=== PATIENT | male | born 1950 | race Caucasian/White ===

== ENCOUNTER 2023-12-07 13:10 | Outpatient (RCR) | payer MEDICARE, OTHER, SELFPAY | END 2023-12-07 23:59 | disposition home or self-care (01) | LOC: RPT 13:10 | PROVIDERS: ATTENDING PHYSICIAN Internal Medicine Medical Oncology; FAMILY PHYSICIAN Internal Medicine | DX: R53.81 Other malaise (principal) | CPT/HCPCS: 97110; 97162; 97530 ==

== ENCOUNTER 2024-01-04 12:56 | Outpatient (RCR) | payer MEDICARE, OTHER, SELFPAY | END 2024-01-04 23:59 | disposition home or self-care (01) | LOC: RPT 12:56 | PROVIDERS: ATTENDING PHYSICIAN Internal Medicine Medical Oncology; FAMILY PHYSICIAN Internal Medicine | DX: R53.81 Other malaise (principal); Z73.6 Limitation of activities due to disability | CPT/HCPCS: 97110; 97530 ==

== ENCOUNTER 2024-02-06 13:09 | Outpatient (RCR) | payer MEDICARE, OTHER, SELFPAY | END 2024-02-06 23:59 | disposition home or self-care (01) | LOC: RPT 13:09 | PROVIDERS: ATTENDING PHYSICIAN Internal Medicine Medical Oncology; FAMILY PHYSICIAN Internal Medicine | DX: R53.81 Other malaise (principal); Z73.6 Limitation of activities due to disability; R26.2 Difficulty in walking, not elsewhere classified; M62.81 Muscle weakness (generalized); R53.83 Other fatigue | CPT/HCPCS: 97110; 97530 ==

== ENCOUNTER 2024-03-07 12:59 | Outpatient (RCR) | payer MEDICARE, OTHER, SELFPAY | END 2024-03-07 23:59 | disposition home or self-care (01) | LOC: RPT 12:59 | PROVIDERS: ATTENDING PHYSICIAN Internal Medicine Medical Oncology; FAMILY PHYSICIAN Internal Medicine | DX: R53.81 Other malaise (principal); Z73.6 Limitation of activities due to disability; R26.2 Difficulty in walking, not elsewhere classified; M62.81 Muscle weakness (generalized); R53.83 Other fatigue; R26.89 Other abnormalities of gait and mobility; Z85.528 Personal history of other malignant neoplasm of kidney | CPT/HCPCS: 97110; 97530 ==

== ENCOUNTER 2024-04-04 11:14 | Outpatient (RCR) | payer MEDICARE, OTHER, SELFPAY | END 2024-04-04 23:59 | disposition home or self-care (01) | LOC: RPT 11:14 | PROVIDERS: ATTENDING PHYSICIAN Internal Medicine Medical Oncology; FAMILY PHYSICIAN Internal Medicine | DX: R53.81 Other malaise (principal); R53.1 Weakness; Z73.6 Limitation of activities due to disability; R26.2 Difficulty in walking, not elsewhere classified; M62.81 Muscle weakness (generalized) | CPT/HCPCS: 97110; 97530 ==

== ENCOUNTER 2024-05-08 12:50 | Outpatient (RCR) | payer MEDICARE, OTHER, SELFPAY | END 2024-05-08 23:59 | disposition home or self-care (01) | LOC: RPT 12:50 | PROVIDERS: ATTENDING PHYSICIAN Internal Medicine Medical Oncology; FAMILY PHYSICIAN Internal Medicine | DX: R53.81 Other malaise (principal); Z73.6 Limitation of activities due to disability; R26.2 Difficulty in walking, not elsewhere classified; M62.81 Muscle weakness (generalized); R53.1 Weakness | CPT/HCPCS: 97110; 97530 ==

== ENCOUNTER 2024-06-07 12:50 | Outpatient (RCR) | payer MEDICARE, OTHER, SELFPAY | END 2024-06-07 23:59 | disposition home or self-care (01) | LOC: RPT 12:50 | PROVIDERS: ATTENDING PHYSICIAN Internal Medicine Medical Oncology; FAMILY PHYSICIAN Internal Medicine | DX: R53.81 Other malaise (principal); Z73.6 Limitation of activities due to disability; R26.2 Difficulty in walking, not elsewhere classified; M62.81 Muscle weakness (generalized); R53.1 Weakness | CPT/HCPCS: 97110; 97530 ==

== ENCOUNTER 2024-07-05 13:00 | Outpatient (RCR) | payer MEDICARE, OTHER, SELFPAY | END 2024-07-05 23:59 | disposition home or self-care (01) | LOC: RPT 13:00 | PROVIDERS: ATTENDING PHYSICIAN Internal Medicine Medical Oncology; FAMILY PHYSICIAN Internal Medicine | DX: R53.81 Other malaise (principal); Z73.6 Limitation of activities due to disability; R26.2 Difficulty in walking, not elsewhere classified; R53.1 Weakness; M62.81 Muscle weakness (generalized) | CPT/HCPCS: 97110; 97530 ==

== ENCOUNTER → 2024-07-16 13:00 | Outpatient (REF) | payer MEDICARE, OTHER, SELFPAY ==
[2024-07-16 15:38] LABS: Free T3 2.21 pg/ml (2.77-5.27); Free T4 1.06 ng/dl (0.78-2.19)
== END ==
LOC: REG 13:00
PROVIDERS: ATTENDING PHYSICIAN Internal Medicine Medical Oncology
DX: E03.2 Hypothyroidism due to medicaments and other exogenous substances (principal)
CPT/HCPCS: 36415; 84439; 84443; 84481

== ENCOUNTER 2024-07-24 12:13 | Outpatient (RCR) | payer MEDICARE, OTHER, SELFPAY | END 2024-07-31 14:04 | disposition home or self-care (01) | LOC: RPT 12:13 | PROVIDERS: ATTENDING PHYSICIAN Internal Medicine Medical Oncology; FAMILY PHYSICIAN Internal Medicine | DX: R53.81 Other malaise (principal); R26.2 Difficulty in walking, not elsewhere classified; Z73.6 Limitation of activities due to disability; R53.1 Weakness; M62.81 Muscle weakness (generalized) | CPT/HCPCS: 97110; 97530 ==

== ENCOUNTER → 2024-12-26 08:49 | Outpatient (REF) | payer MEDICARE, OTHER, SELFPAY ==
[2024-12-26 10:06] LABS: Hematocrit 40.6 % (39.0-52.0); Hemoglobin 12.8 g/dL (13.0-18.0); Mean Corp Hgb Conc. 31.5 g/dL (33.0-37.0); Mean Corpuscular Volume 84.6 fL (80.0-94.0); Nucleated Red Blood Cells % 0 % (-); Platelet Count 208 10^3/uL (130-400); Red Cell Dist. Width 16.8 % (11.5-14.5)
[2024-12-26 10:53] LABS: Glycohemoglobin (HgbA1c) 5.9 % (4.0-5.6)
[2024-12-26 11:10] LABS: ALT (SGPT) 21 U/L (0-50); AST (SGOT) 17 U/L (17-59); Albumin 4.2 g/dl (3.5-5.0); Alkaline Phosphatase 89 U/L (38-126); Blood Urea Nitrogen 28 mg/dl (9-20); Calcium 9.3 mg/dl (8.4-10.2); Carbon Dioxide 24 mmol/L (22-30); Chloride 105 mmol/L (98-107); Glucose 106 mg/dl (70-99); HDL Cholesterol 45 mg/dl; LDL Cholesterol, Calculated 154 mg/dl; Potassium 4.5 mmol/L (3.5-5.1); Sodium 138 mmol/L (135-145); Total Protein 8.0 g/dl (6.3-8.2); Very Low Density Lipoprotein 36 mg/dl (0-30); eGFR 58.37
[2024-12-26 11:28] LABS: PSA, Total - Diagnostic 0.70 ng/ml (0.0-4.0); TSH 4.47 uIU/ml (0.47-4.68)
[2024-12-26 11:52] LABS: Urine Character Clear (Clear)
[2024-12-26 12:29] LABS: Urine Urothelial Cell 0-2 /LPF (FEW)
[2024-12-26 12:30] LABS: Urine Red Blood Cell 0-2 /HPF (0-2); Urine White Cell 0-2 /HPF (0-5)
[2024-12-26 13:25] LABS: Microalb - Urine Creatinine 99.700 mg/dl
[2024-12-26 13:29] LABS: Microalbumin, Random Urine 7.9 mg/dl (0.6-1.7)
== END ==
LOC: HWLAB 08:49
PROVIDERS: ATTENDING PHYSICIAN Nurse Practitioner Adult Health; FAMILY PHYSICIAN Internal Medicine
DX: E83.42 Hypomagnesemia (principal); C64.9 Malignant neoplasm of unspecified kidney, except renal pelvis; R74.01 Elevation of levels of liver transaminase levels; N28.89 Other specified disorders of kidney and ureter; Z00.00 Encounter for general adult medical examination without abnormal findings; I10 Essential (primary) hypertension; E11.9 Type 2 diabetes mellitus without complications; E78.49 Other hyperlipidemia; L89.892 Pressure ulcer of other site, stage 2; K21.9 Gastro-esophageal reflux disease without esophagitis; N40.0 Benign prostatic hyperplasia without lower urinary tract symptoms
CPT/HCPCS: 80053; 80061; 81003; 81015; 82043; 82248; 82570; 83036; 84153; 84439; 84443; 85025

== ENCOUNTER 2025-04-03 11:50 | Outpatient (RCR) | payer MEDICARE, OTHER, SELFPAY | END 2025-04-03 23:59 | disposition home or self-care (01) | LOC: RPT 11:50 | PROVIDERS: ATTENDING PHYSICIAN Physician Assistant Medical; FAMILY PHYSICIAN Internal Medicine | DX: R26.2 Difficulty in walking, not elsewhere classified (principal); Z96.651 Presence of right artificial knee joint (principal); R53.83 Other fatigue; Z73.6 Limitation of activities due to disability; M62.81 Muscle weakness (generalized); R26.89 Other abnormalities of gait and mobility; M25.561 Pain in right knee; Z85.528 Personal history of other malignant neoplasm of kidney | CPT/HCPCS: 97110; 97163; 97530 ==

== ENCOUNTER 2025-05-08 10:26 | Outpatient (RCR) | payer MEDICARE, OTHER, SELFPAY | END 2025-05-08 23:59 | disposition home or self-care (01) | LOC: RPT 10:26 | PROVIDERS: ATTENDING PHYSICIAN Physician Assistant Medical; FAMILY PHYSICIAN Internal Medicine | DX: R26.2 Difficulty in walking, not elsewhere classified (principal); R53.83 Other fatigue; Z73.6 Limitation of activities due to disability; M62.81 Muscle weakness (generalized); R26.89 Other abnormalities of gait and mobility; M25.561 Pain in right knee; Z85.528 Personal history of other malignant neoplasm of kidney; Z96.651 Presence of right artificial knee joint | CPT/HCPCS: 97110; 97530 ==